=== PATIENT | male | born 1950 | race Caucasian/White ===

== ENCOUNTER 2023-08-30 15:40 | Emergency (ER) | payer MEDICARE, MEDICAID, SELFPAY ==
[2023-08-30] VITALS (20 sets, daily range): BP systolic 118–161; BP diastolic 73–129; PULSE 78–117; RESP 17–20; TEMP 36.3–36.7; O2SAT 97–99
--- NOTE | 2023-08-30 15:30 | RT.EKG_ITS ---
APPROVED REPORT Exam: Resting ECG Reason for Exam: CP Patient Location: E HR:104 bpm ECG Measurements Heart Rate 104 AXIS KS 150 P 73 QRSd 82 QRS 94 QT 316 T 52 QTc 416 Conclusion Sinus tachycardia 104 no stemi
[2023-08-30 16:35] LABS: Abs Immature Grans 0.03 10^3/uL (0.0-0.06); Absolute Basophil Count 0.06 10^3/uL (0.0-0.2); Absolute Eosinophil Count 0.17 10^3/uL (0.0-0.7); Absolute Lymphocyte Count 2.26 10^3/uL (1.2-3.4); Absolute Monocyte Count 0.62 10^3/uL (0.1-0.8); Absolute Neutrophil Count 3.07 10^3/uL (1.2-6.7); Eosinophils % 2.7; HCT 43.8 % (40.0-50.0); HGB 14.8 g/dL (13.5-17.5); Immature Grans % 0.5; Lymphocytes % 36.4; MCH 29.8 pg (27.0-33.0); MCHC 33.8 % (32.0-36.0); MCV 88 fL (80-95); MPV 9.5 fL (8.0-11.0); Neutrophils % 49.4; Platelet Count 373 10^3/uL (130-400); RBC 4.97 10^6/uL (4.36-5.78); RDW 13.2 % (11.8-14.1); WBC 6.21 10^3/uL (4.4-10.8)
[2023-08-30 16:56] LABS: ALT 33 U/L (16-63); AST 19 U/L (15-37); Albumin 4.4 g/dL (3.4-5.0); Alkaline Phosphatase 104 U/L (46-116); Anion Gap 13.5 mmol/L (3-11); BUN 25 mg/dL (7-18); Bilirubin, Total 0.5 mg/dL (0.2-1.0); CO2 24.5 mmol/L (21.0-32.0); CREATININE 1.2 mg/dL (0.70-1.30); Calcium 9.8 mg/dL (8.5-10.1); Chloride 102 mmol/L (98-107); Estimated GFR 63.46 (mL/min/1.73m2); Glucose 109 mg/dL (74-106); Magnesium 2.2 mg/dL (1.8-2.4); NT-proBNP 9 pg/mL (<300); Potassium 4.3 mmol/L (3.5-5.1); Sodium 140 mmol/L (136-145); Total Protein 8.3 g/dL (6.4-8.2); Troponin I < 50 ng/L (< or =60)
[2023-08-30 17:29] LABS: Bilirubin Negative (Negative); Blood Negative (Negative); Clarity Clear (Clear); Glucose Negative (Negative); Ketones Negative (Negative); Leukocyte Esterase Small (Negative); Nitrite Positive (Negative); Urobilinogen 0.2 mg/dL (Up to 0.2); pH 7.5 (5-8)
[2023-08-30 17:45] LABS: Epithelial Cells Rare HPF (Negative); RBC 0-2 HPF (0-2)
[2023-08-30 17:46] LABS: Bacteria Moderate HPF (Negative); C & S Indicated? Yes; Casts Negative LPF (Negative); Crystals Negative HPF (Negative); Mucus Negative (Negative)
[2023-08-30] MEDS: cefTRIAXone 1 GM/50 ML BAG 100 GM (18:13)
[2023-08-30] MEDS: ALPRAZolam 0.5 MG TAB (18:44)
--- NOTE | 2023-08-30 19:02 | W.ED.GENAD ---
Discharge Plan Disposition Patient Disposition: Home Condition: Stable Discharge Details Clinical Impression: Anxiety, Acute UTI, Chest pain Primary Care Provider: None,None ED Provider: Neli Haider Home Meds and New Rx's Prescriptions: New ciprofloxacin HCl 500 mg tablet 500 mg PO BID 7 Days Qty: 14 0RF alprazolam [Xanax] 0.5 mg tablet 1.5 mg PO QHS PRNQty: 9 0RF Discharge Instructions Instructions: Urinary Tract Infection in Men (ED) Additional Instructions: Start antibiotics to treat your urine infection. You need to take these twice daily for the next 7 days. You have been provided with a dose of Xanax for tonight and a prescription for 3 additional days. You should follow-up with [facility] internal on Friday to establish primary care and get additional refills on your medications in addition to getting chronic lab work. Return to the emergency department with fever difficulty urinating or back pain concerning for worsened urinary tract infection HPI General Date/Time Provider Initiated Documentation: 08/30/23 15:42. Limitations to Documentation: no limitations. Information obtained by: patient. HPI Narrative: 72y M with PMH of prostate CA s/p surgery, CAD, CVA, presents for evaluation of intermittent chest pain. reports that this has been ongoing for the last week. has some dizziness with it. it is brief, resolves spontaneously. not associated with SOB. He reports that he thinks he is having the symptoms because he has had to decrease his Xanax which she takes nightly. He states that he recently moved to the area and there has been a mixup with his insurance and they has had difficulty establishing care and getting his medications refilled. He states that he really needs his Xanax refilled. He states that he also is running low on his testosterone. He states that he has lots of his blood pressure medication he reports that the symptoms may also be related to a UTI. He states that he has foul-smelling urine. And he states that usually when he has urinary tract infection he gets chest pain. Related Data Home Medications Medication Instructions Recorded Confirmed alprazolam 0.5 mg tablet (Xanax) 1.5 mg (3 x 0.5 mg) PO QHS PRN #9 08/30/23 tabs ciprofloxacin HCl 500 mg tablet 500 mg PO BID 7 days #14 tabs 04/20/24 Previous Rx's Medication Instructions Recorded alprazolam 0.5 mg tablet (Xanax) 1.5 mg (3 x 0.5 mg) PO QHS PRN #9 08/30/23 tabs ciprofloxacin HCl 500 mg tablet 500 mg PO BID 7 days #14 tabs 08/30/23 Allergies Allergy/AdvReac Type Severity Reaction Status Date / Time No Known Allergies Allergy Unverified 08/30/23 15:48 General Stated Complaint: Chest Pain MARYCARMEN: 3 Exam Narrative Exam Narrative: Review of Systems: All systems reviewed & are unremarkable except as noted in HPI and below Well-developed, no acute distress NCAT PERRL, normal conjunctiva RRR Unlabored respiratory effort Nondistended abdomen Extremities w/o deformity, no cyanosis, no edema No rashes or lesions. no focal neurologic deficits Appropriate mood and affect Course Vital Signs Vital signs: Vital Signs Pulse 117 H 08/30/23 15:44 Respiratory Rate 20 08/30/23 15:44 Blood Pressure 161/129 H 08/30/23 15:44 Pulse Oximetry 99 08/30/23 15:44 Temperature 36.7 C 08/30/23 18:31 Temperature Source Skin 08/30/23 15:50 Pulse 80 08/30/23 18:31 Pulse 82 08/30/23 18:31 Respiratory Rate 19 08/30/23 18:31 Respiratory Effort Normal 08/30/23 15:51 Respiratory Depth Normal 08/30/23 15:51 Respiratory Pattern Normal 08/30/23 15:51 Blood Pressure 139/82 08/30/23 18:31 Blood Pressure Mean 101 08/30/23 18:31 Blood Pressure Position Sitting 08/30/23 15:44 Pulse Oximetry 99 08/30/23 18:31 Oxygen Delivery Method Room Air 08/30/23 15:44 Oxygen Flow Rate 0 08/30/23 15:44 Lab/Test Results Lab/Test Results: 08/30/23 07:15 Urine - Reflex from Ua Urine Culture - Pending Laboratory Tests Range/Units 08/30/23 08/30/23 08/30/23 07:15 16:10 19:10 WBC (4.4-10.8) 10^3/uL 6.21 RBC (4.36-5.78) 10^6/uL 4.97 Hgb (13.5-17.5) g/dL 14.8 Hct (40.0-50.0) % 43.8 MCV (80-95) fL 88 MCH (27.0-33.0) pg 29.8 MCHC (32.0-36.0) % 33.8 RDW (11.8-14.1) % 13.2 Plt Count (130-400) 10^3/uL 373 MPV (8.0-11.0) fL 9.5 Immature Gran % 0.5 Neutrophils % 49.4 Lymphocytes % 36.4 Monocytes % 10.0 Eosinophils % 2.7 Basophils % 1.0 Nucleated RBC % (0.0-0.3) % 0.0 Absolute Neutrophils (1.2-6.7) 10^3/uL 3.07 Absolute Lymphocytes (1.2-3.4) 10^3/uL 2.26 Absolute Monocytes (0.1-0.8) 10^3/uL 0.62 Absolute Eosinophils (0.0-0.7) 10^3/uL 0.17 Absolute Basophils (0.0-0.2) 10^3/uL 0.06 Sodium (136-145) mmol/L 140 Potassium (3.5-5.1) mmol/L 4.3 Chloride (98-107) mmol/L 102 Carbon Dioxide (21.0-32.0) mmol/L 24.5 Anion Gap (3-11) mmol/L 13.5 H BUN (7-18) mg/dL 25 H Creatinine (0.70-1.30) mg/dL 1.2 Est GFR (CKD-EPI 2020) (mL/min/1.73m2) 63.46 Glucose (74-106) mg/dL 109 H Calcium (8.5-10.1) mg/dL 9.8 Magnesium (1.8-2.4) mg/dL 2.2 Total Bilirubin (0.2-1.0) mg/dL 0.5 AST (15-37) U/L 19 ALT (16-63) U/L 33 Alkaline Phosphatase (46-116) U/L 104 Troponin I (< or =60) ng/L < 50 Cancelled NT-Pro-B Natriuret Pep (<300) pg/mL 9 Total Protein (6.4-8.2) g/dL 8.3 H Albumin (3.4-5.0) g/dL 4.4 Urine Color (Yellow) Yellow Urine Clarity (Clear) Clear Urine pH (5-8) 7.5 Ur Specific [place] (1.005-1.025) 1.020 Urine Protein (Neg-Trace) mg/dL Negative Urine Ketones (Negative) mg/dL Negative Urine Blood (Negative) Negative Urine Nitrite (Negative) Positive H Urine Bilirubin (Negative) Negative Urine Urobilinogen (Up to 0.2) mg/dL 0.2 Ur Leukocyte Esterase (Negative) Small H Urine RBC (0-2) HPF 0-2 Urine WBC (0-5) HPF 5-10 Ur Epithelial Cells (Negative) HPF Rare Urine Crystals (Negative) HPF Negative Urine Bacteria (Negative) HPF Moderate Urine Casts (Negative) LPF Negative Urine Mucus (Negative) Negative Ur Culture Indicated? Yes Urine Glucose (Negative) mg/dL Negative Medical Decision Making Emergent evaluation of chest pain. The chest pain does not seem to be the primary reason for the patient's visit today. He states that he has a primary care appointment with [facility] on Friday, but that because he is out of his Xanax, he did not think he would make it until then. His chest pain does not sound exertional or concerning for ACS. He does not have acute ischemic EKG changes. He does not have any chest pain today. Lab work obtained. No significant abnormalities slight elevation in anion gap. Renal function normal. Cardiac enzymes unremarkable. His urinalysis is infected. A culture has been sent. A dose of Rocephin was given in the emergency department and I will send the patient home with [facility] for a week. I will give him enough Xanax from your bedtime for the next 3 days. I advised that he needs to follow-up with [facility] to establish primary care and get the remainder of his medications refilled. Medical Records Medical records reviewed: Yes I reviewed the patient's medical records. Lab Data Lab results reviewed: Yes I reviewed the patient's lab results. Quality:SDOH Health Related Social Needs: No Data to Display PFSH All Active Problems Chest pain (Acute) Acute UTI (Acute) Anxiety (Chronic) Social History Smoking/Tobacco Use Status: Never Smoking risk assessment performed?: Yes Alcohol Intake: current Alcohol Intake frequency: holidays/special occasions only Substance use type: marijuana
== END 2023-08-30 18:46 | disposition home or self-care (01) ==
PROVIDERS: Emergency Provider Emergency Medicine
DX: R42 Dizziness and giddiness; N39.0 Urinary tract infection, site not specified; F41.9 Anxiety disorder, unspecified; Z86.79 Personal history of other diseases of the circulatory system; R07.9 Chest pain, unspecified
CPT/HCPCS: 80053; 87077; 93005; 96372; 99283; 81003; 81015; 83735; 83880; 84484; 85025; 87086; 87186; 93010; J0696

== ENCOUNTER 2023-10-20 06:07 | Outpatient (CLI) | payer MEDICARE, MEDICAID, SELFPAY ==
[2023-10-20 15:37] LABS: Anion Gap 10.6 mmol/L (3-11); BUN 28 mg/dL (7-18); CO2 26.4 mmol/L (21.0-32.0); CREATININE 1.1 mg/dL (0.70-1.30); Calculated LDL 92 mg/dL (<100); Chloride 101 mmol/L (98-107); Cholesterol 144 mg/dL (<200); Estimated GFR 70.01 (mL/min/1.73m2); Glucose 107 mg/dL (74-106); HDL Cholesterol 43 mg/dL (40-60); Potassium 4.4 mmol/L (3.5-5.1); Sodium 138 mmol/L (136-145); Triglyceride 46 mg/dL (<150)
[2023-10-20 22:20] LABS: PSA, Screening <0.1 ng/mL (<=6.5)
[2023-10-24 15:47] LABS: Testosterone, Free 10.3 ng/dL (3.08-11.3); Testosterone, Total 364 ng/dL (240-950)
== END 2023-10-20 06:08 | disposition home or self-care (01) ==
LOC: LBO 06:07
PROVIDERS: PCP Nurse Practitioner Family; Visit Provider Nurse Practitioner Family
DX: Z12.5 Encounter for screening for malignant neoplasm of prostate (principal); N18.2 Chronic kidney disease, stage 2 (mild); Z13.6 Encounter for screening for cardiovascular disorders
CPT/HCPCS: 36415; 80048; 80061; 84153; 84402; 84403